=== PATIENT | male | born 1990 | race Caucasian/White ===

== ENCOUNTER 2022-06-07 12:41 | Emergency (ER) | payer SELFPAY ==
[~2022-06-07] VITALS: Ht 190.5 cm; Wt 90.7 kg
--- NOTE | 2022-06-07 13:10 | NUR ---
RECEIVED PT 31 YRS OLD MALE C/O CHEST PAIN AND SOB AWAKE AND ALERT
--- NOTE | 2022-06-07 13:30 | NUR ---
BLOOD DROW LAB TACH
[2022-06-07 14:46] VITALS: BP 127/82
--- NOTE | 2022-06-07 14:47 | NUR ---
Patient discharged to home in stable condition. Written and verbal after care instructions given. Patient verbalizes understanding of instruction.
== END 2022-06-07 14:48 | disposition home or self-care (01) ==
LOC: ER 12:48
DX: R07.9 Chest pain, unspecified (principal); F41.9 Anxiety disorder, unspecified
CPT/HCPCS: 71045-TC